=== PATIENT | female | born 1995 | race Caucasian/White ===

== ENCOUNTER → 2016-04-04 | Outpatient (CLI) | payer BC ==
[~2016-04-04] MED LIST: ASCA500 PO; NORE5TAB5 PO; [UNRECOGNIZED DRUG - OTHER] PV
[2016-04-04 14:39] LABS: BASO % 0.3 %; BASO ABS # 0.02 K/uL (0-0.2); COMPLETE YES; HEMATOCRIT 37.1 % (37-47); IG% 0.1 %; LYMPH % 38.5 %; MEAN CELL VOLUME 88.1 fL (80-100); MEAN CORPUSCULAR HEMOGLOBIN 30.6 pg (25-34); MEAN CORPUSCULAR HGB CONC 34.8 g/dl (32-36); MEAN PLATELET VOLUME 10.7 fL (7.4-10.4); MONO % 8.3 %; NEUT % 51.8 %; PLATELET COUNT 197 K/uL (130-400); RED BLOOD COUNT 4.21 M/uL (4.2-5.4); WHITE BLOOD COUNT 7.01 K/uL (4.8-10.8)
== END | disposition home or self-care (01) ==
LOC: C.LAB1850 13:56
PROVIDERS: ATTEND Obstetrics & Gynecology
DX: O02.1 Missed abortion (principal)

== ENCOUNTER 2016-04-05 08:30 | Day surgery (SDC) | payer BC ==
[2016-04-03 16:18] VITALS: BMI 27.0
[~2016-04-05] VITALS: Ht 157.5 cm; Wt 68.2 kg
[~2016-04-05 08:30] MED LIST changes: -ASCA500 PO; +DEXAMETHASONE SOD INJ 4 MG/ML VIAL ONE; +DOXYCYCLINE HYCLATE 100 MG CAP PO SCH; +FENTANYL CITRATE INJ 50 MCG/1 ML 2 ML VIAL ONE; +LACTATED RINGER'S 1000ML 1,000 ML IV SCH; +LACTATED RINGER'S 1000ML 500 ML IV ONE; +LIDOCAINE HCL 2% 2 ML VIAL (20MG/ML) ONE; +METHYLERGONOVINE MALEATE 0.2 MG TAB PO SCH; +METHYLERGONOVINE MALEATE 0.2 MG/ML AMP IM SCH; +MIDAZOLAM HCL 1 MG/ML 2ML VIAL ONE; -NORE5TAB5 PO; +ONDANSETRON INJ 2 MG/ML 2 ML VIAL ONE; +PROPOFOL IV EMULSION 10 MG/ML 20 ML VIAL IV ONE; -[UNRECOGNIZED DRUG - OTHER] PV
[2016-04-05 08:45] VITALS: BP 108/72; PULSE 90; TEMP 36.8; O2SAT 99; Ht 157.5 cm; Wt 68.2 kg
[2016-04-05] MEDS ORDERED: ATROPINE SULFATE 0.1 MG/ML 5ML SYR IV PRN (09:15)
[2016-04-05] MEDS ORDERED: ONDANSETRON INJ 2 MG/ML 2 ML VIAL IV PRN ×2 (09:15→11:00)
[2016-04-05] MEDS ORDERED: EpHEDrine SULFATE INJ 50 MG/ML AMP IV PRN (09:15)
[2016-04-05] MEDS ORDERED: PROMETHAZINE HCL INJ 6.25 MG in SODIUM CHLORIDE 0.9% 50ML 50 ML IV PRN (09:15)
[2016-04-05] MEDS ORDERED: FENTANYL CITRATE INJ 50 MCG/1 ML 2 ML VIAL IV PRN (09:15)
[2016-04-05] MEDS ORDERED: NURSING VERBAL MED ORDER ONE (10:00)
[2016-04-05] MEDS ORDERED: SCOPOLAMINE 1.5 MG TDSY TD ONE (10:02)
--- NOTE | 2016-04-05 10:03 | History & Physical Bridge Note ---
H&P Re-Evaluation Bridge Note: I have examined the patient, reviewed the History & Physical and in the interval since the performance of the History & Physical I have noted the following changes of clinical significance: No changes noted
[2016-04-05] MEDS ORDERED: METHYLERGONOVINE MALEATE 0.2 MG/ML AMP ONE (10:24)
[2016-04-05] MEDS ORDERED: ONDANSETRON INJ 2 MG/ML 2 ML VIAL ONE (10:47)
[2016-04-05] MEDS ORDERED: SODIUM CHLORIDE 0.9% 1000ML 1,000 ML IV SCH (10:48)
--- NOTE | 2016-04-05 10:50 | [facility] Post Operative Brief Note ---
Immediate Operative Summary Operative Date Apr 05, 2016. Pre-Operative Diagnosis Missed Post-Operative Diagnosis Missed Procedure(s) Performed Cervical Dilation, evacuation and curettage Surgeon Dr. Katalina Green Photoengraving Supervisor Surgeon(s) none Estimated Blood Loss 50 ml Findings uterus sounds to 9cm preop, small mobile postop. moderate POCs Fluids (cc crystalloids) 800 Specimens A. Products of Conception Drains none Anesthesia general LMA Complication(s) None Disposition Recovery Room / PACU
[2016-04-05] MEDS ORDERED: OXYCODONE/ACETAMINOPHEN 5-325 TAB PO PRN ×2 (11:00)
[2016-04-05] MEDS ORDERED: KETOROLAC TROMETHAMINE 30 MG/ML VIAL IV. PRN (11:00)
--- NOTE | 2016-04-05 11:28 | Medical Student: [facility] ---
Immediate Operative Summary Operative Date Apr 05, 2016. Pre-Operative Diagnosis Missed Post-Operative Diagnosis Missed Procedure(s) Performed Cervical dilation, curettage and evacuation Surgeon Dr. Katalina Green Vibrating Screen Operator Surgeon(s) None Estimated Blood Loss 50 mL Findings External cervical os to uterine fundus 9 cm pre-op Uterus small and mobile post-op Products of conception Fluids (cc crystalloids) 800 mL Specimens Products of conception Drains None Anesthesia LMA Complication(s) None Disposition Recovery Room / PACU
--- NOTE | 2016-04-05 11:28 | OPERATIVE REPORT ---
DATE OF OPERATION: 04/05/2016 PREOPERATIVE DIAGNOSES: Missed . POSTOPERATIVE DIAGNOSIS: Same. PROCEDURE: Dilatation and evacuation and curettage. SURGEON: Dr. Katalina Green. ENTERTAINMENT AGENT: None. IV FLUIDS: 800 mL. ANESTHESIA: General with LMA. ESTIMATED BLOOD LOSS: 50 mL. FINDINGS: Uterus sounds to 9 cm preprocedure. Small mobile, post-procedure. moderate products of conception. INDICATIONS: This 21-year-old 1, para 0 with 8 week 6-day missed who desired surgical management. She is aware of her other treatment options including expectant management and medical treatment and desired surgical management. OPERATION AND FINDINGS: PROCEDURE: The patient was taken to the operating room and identified. After adequate general anesthesia was obtained, she was placed in the dorsal lithotomy position and prepped and draped in the usual sterile fashion. Her bladder was drained for clear yellow urine. A weighted speculum and anterior retractor were placed to visualize the cervix which was grasped on its anterior lip with an Allis clamp. The cervix was sequentially dilated using Hegar dilators to 23. An 8 mm suction curette was gently placed through the cervical os into the uterine cavity and the uterus was cleared of its contents in multiple passes. The uterus was then curettaged to a gritty consistency and additional passes with the suction curette took place to clear the uterus of its remaining blood and tissue. IM Methergine 0.2 mg was administered per my order by anesthesia. All the vaginal instruments were removed. The patient was returned to supine position. She was transferred to the recovery room in stable condition. All sponge, lap and needle counts were correct x2. I attest to the content of the Intraoperative Record and any orders documented therein. Any exceptions are noted below. MTDD
[2016-04-05 11:30] VITALS: BP 116/68; PULSE 63; TEMP 36.9; O2SAT 100
[2016-04-05 12:00] VITALS: BP 117/77; PULSE 74; TEMP 36.8; O2SAT 99
[2016-04-05] MEDS ORDERED: IBUPROFEN 600 MG TAB ONE (12:09)
[2016-04-05 12:30] VITALS: BP 125/65; PULSE 70; TEMP 36.6; O2SAT 100
--- NOTE | 2016-04-05 13:03 | Discharge Instructions ---
Discharge Instructions Admission Reason for Admission: Missed Discharge Discharge Diagnosis / Problem: after surgery Discharge Goals Goal(s): Routine recovery after surgery Activity Recommendations Activity Limitations: as noted below . Instructions / Follow-Up Instructions / Follow-Up ACTIVITY RECOMMENDATIONS: * Avoid tampons, douching, hot tubs, pools, and intercourse until bleeding has stopped. * May shower as usual. * No strenuous activity for 24-48 hours. After 24-48 hours, you may do anything you feel like doing (driving and sports are okay). SPECIAL CARE INSTRUCTIONS: Special Diet: * Mild nausea may occur in the immediate post-operative period. * Take clear liquids such as tea, cola or bouillon until all nausea has subsided; you may then resume your normal diet. Take the methergine tablets given to you at the hospital every 6hrs by mouth for 3 doses. Take the first dose around 4pm today. Special Care: * Light bleeding and vaginal spotting can last from a few days to 3-4 weeks. Call your doctor if bleeding becomes heavier than the heaviest part of your period. * Check your temperature twice a day for one week. If it goes above 100.4 degrees Fahrenheit (38.0 Celsius), notify your doctor. * Call your doctor's office for an appointment for 2 weeks after your surgery. FOLLOW-UP VISIT: Call your doctor's office for an appointment for 2 weeks after your surgery. Current Hospital Diet Patient's current hospital diet: Discharge Diet Recommended Diet: Regular Diet Procedures Procedures Performed: Cervical Dilation, evacuation and curettage Pending Studies Studies pending at discharge: yes List of pending studies: pathology Medical Emergencies . Who to Call and When: Medical Emergencies: If at any time you feel your situation is an emergency, please call 911 immediately. . Non-Emergent Contact Non-Emergency issues call your: Powder Expert Call Non-Emergent contact if: you have a fever, you have any medication questions . . "Provider Documentation" section prepared by Katalina Green. VTE Core Measure Inpt VTE Proph given/why not?: Treatment not indicated
--- NOTE | 2016-04-05 14:31 | Anesthesiology Progress Note ---
Anesthesia Post Op Note Date & Time Apr 05, 2016 at 14:31 Vital Signs Pain Intensity: 1 Vital Signs Past 12 Hours Date Time Temp Pulse Resp B/P Pulse Ox O2 Delivery O2 Flow Rate FiO2 04/05/16 12:30 36.6 70 20 125/65 100 Room Air 04/05/16 12:00 36.8 74 20 117/77 99 Room Air 04/05/16 11:30 36.9 63 20 116/68 100 Room Air 04/05/16 11:25 37 63 16 116/73 100 Room Air 04/05/16 11:15 63 16 115/71 100 Room Air 04/05/16 11:05 82 16 122/74 100 Mask 10 04/05/16 10:55 36.8 88 16 118/78 100 Mask 10 04/05/16 10:46 36.8 115 24 131/95 99 Mask 10 04/05/16 08:45 36.8 90 18 108/72 99 Room Air Notes Mental Status: alert / awake / arousable, participated in evaluation Pt Amnestic to Procedure: Yes Nausea / Vomiting: adequately controlled Pain: adequately controlled Airway Patency, RR, SpO2: stable & adequate BP & HR: stable & adequate Hydration State: stable & adequate Anesthetic Complications: no major complications apparent
[2016-04-05] MEDS ORDERED: METHYLERGONOVINE MALEATE 0.2 MG TAB PO SCH (16:00)
[2016-04-05] MEDS ORDERED: IBUPROFEN 600 MG TAB PO PRN (18:00)
== END 2016-04-05 13:20 | disposition home or self-care (01) ==
LOC: C.ACU 08:30
PROVIDERS: ATTEND Obstetrics & Gynecology
DX: O02.1 Missed abortion (principal); Z88.0 Allergy status to penicillin; Z88.1 Allergy status to other antibiotic agents

== ENCOUNTER → 2016-05-22 | Outpatient (CLI) | payer BC ==
[~2016-05-22] MED LIST changes: +ASCA500 PO; -DEXAMETHASONE SOD INJ 4 MG/ML VIAL ONE; -DOXYCYCLINE HYCLATE 100 MG CAP PO SCH; -FENTANYL CITRATE INJ 50 MCG/1 ML 2 ML VIAL ONE; -LACTATED RINGER'S 1000ML 1,000 ML IV SCH; -LACTATED RINGER'S 1000ML 500 ML IV ONE; -LIDOCAINE HCL 2% 2 ML VIAL (20MG/ML) ONE; -METHYLERGONOVINE MALEATE 0.2 MG TAB PO SCH; -METHYLERGONOVINE MALEATE 0.2 MG/ML AMP IM SCH; -MIDAZOLAM HCL 1 MG/ML 2ML VIAL ONE; +NORE5TAB5 PO; -ONDANSETRON INJ 2 MG/ML 2 ML VIAL ONE; -PROPOFOL IV EMULSION 10 MG/ML 20 ML VIAL IV ONE; +[UNRECOGNIZED DRUG - OTHER] PV
[2016-05-22 17:19] LABS: URINE APPEARANCE CLOUDY (CLEAR); URINE BILIRUBIN NEG (NEG); URINE COLOR YELLOW; URINE NITRITE NEG (NEG); URINE SPECIFIC GRAVITY 1.007 (1.000-1.030); UROBILINOGEN NEG (NEG)
[2016-05-22 17:20] LABS: MANUAL MICROSCOPIC REQUIRED? NO; REVIEW REQ? YES
== END | disposition home or self-care (01) ==
LOC: C.LAB1850 16:08
PROVIDERS: ATTEND Physician Assistant
DX: R31.9 Hematuria, unspecified (principal)

== ENCOUNTER → 2016-05-24 | Outpatient (CLI) | payer BC ==
[2016-05-24 16:49] LABS: BASO % 0.1 %; BASO ABS # 0.01 K/uL (0-0.2); COMPLETE YES; EOS % 1.1 %; HEMATOCRIT 35.8 % (37-47); IG% 0.1 %; LYMPH % 39.7 %; LYMPH ABS # 2.83 K/uL (1.2-3.4); MEAN CELL VOLUME 88.8 fL (80-100); MEAN CORPUSCULAR HEMOGLOBIN 30.3 pg (25-34); MEAN CORPUSCULAR HGB CONC 34.1 g/dl (32-36); MEAN PLATELET VOLUME 10.1 fL (7.4-10.4); MONO % 11.2 %; NEUT % 47.8 %; PLATELET COUNT 297 K/uL (130-400); RED BLOOD COUNT 4.03 M/uL (4.2-5.4); WHITE BLOOD COUNT 7.12 K/uL (4.8-10.8)
[2016-05-24 17:36] LABS: PREG INTERNAL NEGATIVE QC NEG CLEAR BACKGROUND; PREG INTERNAL POSITIVE QC POS CONTROL LINE
[2016-05-25 23:53] LABS: RAPID PLASMA REAGIN NONREACTIVE (NONREACT)
[2016-05-27 03:06] LABS: CHLAMYDIA TRACH RNA*** NOT DETECTED (NOT DETECTED); GC (NEIS GONORRHOEAE)RNA** NOT DETECTED (NOT DETECTED)
== END | disposition home or self-care (01) ==
LOC: C.LAB1850 16:04
PROVIDERS: ATTEND Physician Assistant
DX: R10.2 Pelvic and perineal pain (principal); Z11.3 Encounter for screening for infections with a predominantly sexual mode of transmission

== ENCOUNTER 2016-05-25 15:35 | Emergency (ER) | payer BC ==
[~2016-05-25] VITALS: Ht 160 cm; Wt 66.9 kg
[2016-05-25 15:37] VITALS: TEMP 36.9
[2016-05-25] MEDS ORDERED: SODIUM CHLORIDE 0.9% 1000ML 1,000 ML IV STA (15:49)
[2016-05-25] MEDS ORDERED: ASCA500 PO (16:02)
[2016-05-25 16:03] VITALS: Ht 160 cm; Wt 66.9 kg
[2016-05-25 16:04] VITALS: O2SAT 97
[2016-05-25 16:09] LABS: BASO % 0.4 %; BASO ABS # 0.02 K/uL (0-0.2); COMPLETE YES; EOS % 1.1 %; HEMATOCRIT 38.1 % (37-47); IG% 0.2 %; LYMPH % 44.9 %; MEAN CELL VOLUME 87.2 fL (80-100); MEAN CORPUSCULAR HEMOGLOBIN 29.7 pg (25-34); MEAN CORPUSCULAR HGB CONC 34.1 g/dl (32-36); MEAN PLATELET VOLUME 9.5 fL (7.4-10.4); MONO % 12.2 %; NEUT % 41.2 %; PLATELET COUNT 285 K/uL (130-400); RED BLOOD COUNT 4.37 M/uL (4.2-5.4); WHITE BLOOD COUNT 5.57 K/uL (4.8-10.8)
[2016-05-25 16:25] LABS: PARTIAL THROMBOPLASTIN RATIO 1.1; PROTHROMBIN TIME (PATIENT) 10.7 SECONDS (9.0-12.0)
[2016-05-25 16:29] LABS: BUN/CREATININE RATIO 8.2 (10-20); CALCIUM 8.8 mg/dl (8.5-10.1); CREATININE 0.72 mg/dl (0.60-1.20); POTASSIUM 3.5 mmol/L (3.5-5.1)
[2016-05-25 16:31] LABS: ALB/GLOB RATIO 1.2 (0.9-2)
--- NOTE | 2016-05-25 17:15 | DIAGNOSTIC IMAGING REPORT ---
EXAMINATION: PELVIC ULTRASOUND (transabdominal and endovaginal scanning) CLINICAL HISTORY: Vaginal bleeding COMPARISON STUDY: None FINDINGS: The uterus measured 7.9 x 4.0 x 5.8 cm. The endometrial stripe measured 12 mm. The right ovary measured 39 x 23 x 24 mm. The left ovary measured 43 x 27 x 29 mm. There are multiple bilateral ovarian follicles. There is no ultrasonographic evidence of ovarian torsion. It should be noted that ovarian torsion can be present with normal Doppler ultrasonographic findings. There is minimal free fluid likely physiologic. IMPRESSION: 1. 12 mm endometrial stripe. No myometrial masses identified 2. Multiple bilateral ovarian follicles. No evidence ultrasound of torsion. Electronically signed by: Aubrey Varner M.D. 05/25/2016 5:13 PM Dictated Date/Time: 05/25/2016 5:10 PM
[2016-05-25] MEDS ORDERED: NORETHINDRONE ACETATE 5 MG TAB PO STA (17:39)
[2016-05-25 17:54] LABS: URINE APPEARANCE CLEAR (CLEAR); URINE BILIRUBIN NEG (NEG); URINE COLOR YELLOW; URINE EPITHELIAL CELL AUTO 0-5 /lpf (0-5); URINE NITRITE NEG (NEG); URINE SPECIFIC GRAVITY 1.004 (1.000-1.030); UROBILINOGEN NEG (NEG)
[2016-05-25 17:56] LABS: MANUAL MICROSCOPIC REQUIRED? NO; REVIEW REQ? NO
[2016-05-25 17:57] VITALS: BP 109/60; PULSE 67; O2SAT 98
[2016-05-25] MEDS ORDERED: NORE5TAB5 PO (18:01)
--- NOTE | 2016-05-25 20:16 | EMERGENCY ROOM VISIT NOTE ---
History Report prepared by Sindy: Emmett Hoffman Under the Supervision of: Dr. Coleman Palmer M.D. First contact with patient: 15:49 Chief Complaint: VAGINAL BLEEDING Stated Complaint: PELVIC PAIN, AND HEAVY BLEEDING History of Present Illness The patient is a 21 year old female who presents to the Emergency Room with complaints of persistent vaginal bleeding beginning 2 days ago. She had a miscarriage, and had a D&E on April 05, [address] Green. She was seen by [facility] yesterday and had a pelvic exam, but could not get scheduled for a US, and was referred to the ER. After the D&E she reports bleeding for a while, but was otherwise fine. The patient notes having her first period since the miscarriage about 2 weeks ago, and heavy bleeding began 2 days ago. She adds having abdominal pain which she describes as like her menstrual pain. She states using a tampon about every 2 hours. This was her first , and she reports the miscarriage was not caused by anything specific. Pt denies LOC, headache, fevers, chills, diaphoresis, visual changes, neck pain , chest pain, breathing difficulties, nausea, vomiting, back pain, melena, hematochezia, urinary symptoms, numbness, weakness, lymphadenopathy, rash, or other complaints. Source of History: patient Onset: 2 days ago Position: other (vagina) Symptom Intensity: tampon every 2 hours Quality: other (vaginal bleeding) Timing: other (persistent) Associated Symptoms: + abdominal pain Review of Systems See HPI for pertinent positives and negatives. A total of ten systems were reviewed and were otherwise negative. Past Medical & Surgical Medical Problems: (1) History of miscarriage Family History No pertinent family history stated. Social History Smoking Status: Never Smoker Current/Historical Medications Scheduled Ascorbic Acid (Vitamin C), 500 MG PO DAILY Norethindrone (Aygestin), 5 MG PO UD Allergies Coded Allergies: Amoxicillin (Verified Allergy, Unknown, FAMILY HX - MOM SEVERE ALLERGY, SISTER-HIVES, 05/25/16) Penicillins (Verified Allergy, Unknown, FAMILY HX - MOM SEVERE ALLERGY, SISTER-HIVES, 05/25/16) Physical Exam Vital Signs Date Time Temp Pulse Resp B/P Pulse Ox O2 Delivery O2 Flow Rate FiO2 05/25/16 17:57 67 18 109/60 98 Room Air 05/25/16 17:35 63 05/25/16 16:04 97 Room Air 05/25/16 15:37 36.9 71 18 126/84 97 Room Air Physical Exam GENERAL: Awake, alert, well-appearing, in no distress HENT: Normocephalic, atraumatic. Oropharynx unremarkable. EYES: Normal conjunctiva. Sclera non-icteric. NECK: Supple. No nuchal rigidity. FROM. No JVD. RESPIRATORY: Clear to auscultation. CARDIAC: Regular rate, normal rhythm. Extremities warm and well perfused. Pulses equal. ABDOMEN: Soft, non-distended. Mild lower abdominal tenderness to palpation. No rebound or guarding. No masses. RECTAL: Deferred. MUSCULOSKELETAL: Chest examination reveals no tenderness. The back is symmetrical on inspection without obvious abnormality. There is no CVA tenderness to palpation. No joint edema. LOWER EXTREMITIES: Calves are equal size bilaterally and non-tender. No edema. No discoloration. NEURO: Normal sensorium. No sensory or motor deficits noted. SKIN: No rash or jaundice noted. Medical Decision & Procedures ER Provider Diagnostic Interpretation: Radiology results as stated below per my review and radiologist interpretation EXAMINATION: PELVIC ULTRASOUND (transabdominal and endovaginal scanning) CLINICAL HISTORY: Vaginal bleeding COMPARISON STUDY: None FINDINGS: The uterus measured 7.9 x 4.0 x 5.8 cm. The endometrial stripe measured 12 mm. The right ovary measured 39 x 23 x 24 mm. The left ovary measured 43 x 27 x 29 mm. There are multiple bilateral ovarian follicles. There is no ultrasonographic evidence of ovarian torsion. It should be noted that ovarian torsion can be present with normal Doppler ultrasonographic findings. There is minimal free fluid likely physiologic. IMPRESSION: 1. 12 mm endometrial stripe. No myometrial masses identified 2. Multiple bilateral ovarian follicles. No evidence ultrasound of torsion. Electronically signed by: Aubrey Varner M.D. 05/25/2016 5:13 PM Dictated Date/Time: 05/25/2016 5:10 PM Laboratory Results 05/25/16 15:57 Red Blood Count 4.37, Mean Corpuscular Volume 87.2, Mean Corpuscular Hemoglobin 29.7, Mean Corpuscular Hemoglobin Concent 34.1, Mean Platelet Volume 9.5, Neutrophils (%) (Auto) 41.2, Lymphocytes (%) (Auto) 44.9, Monocytes (%) (Auto) 12.2, Eosinophils (%) (Auto) 1.1, Basophils (%) (Auto) 0.4, Neutrophils # (Auto ) 2.30, Lymphocytes # (Auto) 2.50, Monocytes # (Auto) 0.68, Eosinophils # (Auto ) 0.06, Basophils # (Auto) 0.02 05/25/16 15:57 Test 05/25/16 15:57 05/25/16 17:28 White Blood Count 5.57 K/uL (4.8-10.8) Red Blood Count 4.37 M/uL (4.2-5.4) Hemoglobin 13.0 g/dL (12.0-16.0) Hematocrit 38.1 % (37-47) Mean Corpuscular Volume 87.2 fL (80-100) Mean Corpuscular Hemoglobin 29.7 pg (25-34) Mean Corpuscular Hemoglobin Concent 34.1 g/dl (32-36) Platelet Count 285 K/uL (130-400) Mean Platelet Volume 9.5 fL (7.4-10.4) Neutrophils (%) (Auto) 41.2 % Lymphocytes (%) (Auto) 44.9 % Monocytes (%) (Auto) 12.2 % Eosinophils (%) (Auto) 1.1 % Basophils (%) (Auto) 0.4 % Neutrophils # (Auto) 2.30 K/uL (1.4-6.5) Lymphocytes # (Auto) 2.50 K/uL (1.2-3.4) Monocytes # (Auto) 0.68 K/uL (0.11-0.59) Eosinophils # (Auto) 0.06 K/uL (0-0.5) Basophils # (Auto) 0.02 K/uL (0-0.2) RDW Standard Deviation 40.7 fL (36.4-46.3) RDW Coefficient of Variation 12.7 % (11.5-14.5) Immature Granulocyte % (Auto) 0.2 % Immature Granulocyte # (Auto) 0.01 K/uL (0.00-0.02) Prothrombin Time 10.7 SECONDS (9.0-12.0) Prothromb Time International Ratio 1.0 (0.9-1.1) Activated Partial Thromboplast Time 29.4 SECONDS (21.0-31.0) Partial Thromboplastin Ratio 1.1 Anion Gap 7.0 mmol/L (3-11) Est Creatinine Clear Calc Drug Dose 112.6 ml/min Estimated GFR () 137.8 Estimated GFR (Non- 118.9 BUN/Creatinine Ratio 8.2 (10-20) Calcium Level 8.8 mg/dl (8.5-10.1) Total Bilirubin 0.3 mg/dl (0.2-1) Aspartate Amino Transf (AST/SGOT) 19 U/L (15-37) Alanine Aminotransferase (ALT/SGPT) 21 U/L (12-78) Alkaline Phosphatase 52 U/L (45-117) Total Protein 7.6 gm/dl (6.4-8.2) Albumin 4.2 gm/dl (3.4-5.0) Globulin 3.4 gm/dl (2.5-4.0) Albumin/Globulin Ratio 1.2 (0.9-2) Human Chorionic Gonadotropin, Quant 2 mIU/mL Urine Color YELLOW Urine Appearance CLEAR (CLEAR) Urine pH 7.0 (4.5-7.5) Urine Specific Zalma 1.004 (1.000-1.030) Urine Protein NEG (NEG) Urine Glucose (UA) NEG (NEG) Urine Ketones NEG (NEG) Urine Occult Blood TRACE (NEG) Urine Nitrite NEG (NEG) Urine Bilirubin NEG (NEG) Urine Urobilinogen NEG (NEG) Urine Leukocyte Esterase NEG (NEG) Urine WBC (Auto) 0 /hpf (0-5) Urine RBC (Auto) 0-4 /hpf (0-4) Urine Hyaline Casts (Auto) 0 /lpf (0-5) Urine Epithelial Cells (Auto) 0-5 /lpf (0-5) Urine Bacteria (Auto) NEG (NEG) Urine Test NEG (NEG) Laboratory results reviewed by me Medications Administered Medications (Trade) Dose Ordered Sig/Vicki Route Start Time Stop Time Status Last Admin Dose Admin Sodium Chloride (Nss 1000ml) 1,000 ml @ 999 mls/hr Q1H1M STAT IV 05/25/16 15:49 05/25/16 16:49 DC 05/25/16 16:06 999 MLS/HR Norethindrone Acetate (Aygestin Tab) 5 mg NOW STAT PO 05/25/16 17:39 05/25/16 17:52 DC 05/25/16 18:12 5 MG ED Course 1549: Ordered NSS 1,000 ml @ 999 mls/hr IV. 1601: The patient was evaluated in room A12B. A complete history and physical exam was performed. 1735: I discussed the patient's case with Dr. Green who recommended starting the patient on a progestin taper and then follow up. 1738: I updated the patient and she agrees to the progestin taper. 1739: Ordered Norethindrone Acetate 5 mg PO. 1800: I reevaluated the patient. Discussed results and discharge instructions: She verbalized understanding and agreement. The patient is ready for discharge. Medical Decision Triage Nursing notes reviewed and agree them. The patient's history was concerning for vaginal bleeding and abdominal pain. Differential diagnosis: Etiologies such as dysfunctional uterine bleeding,ectopic , bleeding dyscrasia, trauma, infection, as well as others were entertained. Physical examination: As above. Mild tenderness but no peritoneal findings. ER treatment provided: Normal saline hydration On reassessment the patient felt better. Diagnostic interpretation by me: The labs revealed the patient to the Rh positive. CBC, coagulation studies, and chemistries were unremarkable. Quantitative hCG was 2 Imaging studies: Ultrasound as above Consultation: A consultation was placed with the nutrition services worker physician, Dr. Green. The case was discussed and diagnostics were reviewed. She recommended offering a norethindrone taper to the patient. The patient accepted. I gave my usual and customary discussion regarding this issue. The patient was given the first 5 mg in the emergency department. By the evaluation outlined above emergent etiologies such as bleeding dyscrasia , ectopic , trauma, as well as others were deemed relatively unlikely. The patient was informed about the findings as listed above. All questions were answered and she was pleased with the treatment. Return instructions were outlined and the patient was discharged in stable condition. Outpatient prescription management: Norethindrone taper:4 pills daily for 4 days, then 3 pills a day for 3 days, then 2 pills a day for 2 days, then one pill a day until finished. Referral: The patient was referred to [facility] for follow-up in 2 to 3 days for a recheck of her current condition. The chart was completed utilizing [employer] voice recognition software. Grammatical errors, random word insertions, pronoun errors, and incomplete sentences are an occasional consequence of this system due to software limitations, ambient noise, and hardware issues. Any formal questions or concerns about the content, text, or information contained within the body of this dictation should be directly addressed to the physician for clarification. Consults Time Called: 1722 Consulting Physician: Dr. Green, [facility] Returned Call: 1730 I discussed the patient's case with Dr. Green who recommended starting the patient on a progestin taper and then follow up. Impression Primary Impression: Dysfunctional uterine bleeding Scribe Attestation The scribe's documentation has been prepared under my direction and personally reviewed by me in its entirety. I confirm that the note above accurately reflects all work, treatment, procedures, and medical decision making performed by me. Departure Information Dispostion Home / Self-Care Prescriptions Norethindrone (Aygestin) 5 Mg Tab 5 MG PO UD, #39 TAB 4 pills daily for 4 days, then 3 pills a day for 3 days, then 2 pills a day for 2 days, then one pill a day until finished. Prov: Coleman Palmer MD 05/25/16 Referrals No Doctor, Assigned (PCP) Patient Instructions My [facility] [employer] Additional Instructions Norethindrone: 4 pills daily for 4 days, then 3 pills a day for 3 days, then 2 pills a day for 2 days, then one pill a day until finished. Review the package insert for all your medications. This is necessary as important health information is provided for your benefit and current care. Abstain from intercourse or use condoms to avoid while on the norethindrone. Return to the emergency department for passing out, abdominal pain, bleeding more than 3 pads an hour for 3 consecutive hours, or as needed. No tampon use, intercourse, physical exertion, or strenuous activity. Rest and drink plenty of fluids. Follow-up with [facility] next week.
== END 2016-05-25 18:21 | disposition home or self-care (01) ==
LOC: C.EDB 15:36 → C.EDA 18:21
DX: N93.8 Other specified abnormal uterine and vaginal bleeding (principal)

== ENCOUNTER 2016-05-31 20:20 | Emergency (ER) | payer BC ==
[~2016-05-31] VITALS: Ht 160 cm; Wt 67.0 kg
[~2016-05-31 20:20] MED LIST changes: -[UNRECOGNIZED DRUG - OTHER] PV
[2016-05-31 20:26] VITALS: TEMP 37.1; Ht 160 cm; Wt 67.0 kg
[2016-05-31] MEDS ORDERED: [UNRECOGNIZED DRUG - OTHER] PV (21:02)
--- NOTE | 2016-05-31 21:31 | EMERGENCY ROOM VISIT NOTE ---
History Report prepared by Sindy: Chaparrita Patiño Under the Supervision of: Dr. Emmett Varghese M.D. 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 The patient states that she had a D&E 2 months ago, and since she has had irregular bleeding and menstrual periods. She states for 3 weeks after the D&E she had bleeding and then last week she had another menstrual period with very heavy bleeding and cramping which she was seen in the ED for. She states that today she did not have any bleeding but passed an irregular clot causing her to come into the ED. The patient denies any abdominal pain, back pain, lightheadedness, dizziness, She states she was here last week and heavy bleeding, urinary burning, trauma or injury. The patient states that she was taking an medication over the last week which she was suppose to taper but she states she messed up while taking it the last few days and today was the first day which she did not take it at all. The patient also states that she is currently on medication for a bacterial infection by her OBGYN. The patient denies any chance of and states she last had intercourse about 1 week ago. Source of History: patient Onset: 1 hour PRESS ASSISTANT Position: other (vaginal) Quality: other (abnormal) Associated Symptoms: No abdominal pain, No back pain Note: Patient denies vaginal bleeding, lightheadedness, dizziness, urinary burning, trauma or injury. Review of Systems See HPI for pertinent positives & negatives. A total of 10 systems reviewed and were otherwise negative. Past Medical & Surgical Medical Problems: (1) History of miscarriage Old medical records were reviewed. Nurse's notes were reviewed and I agree with. Family History Patient reports no known family medical history. Social History Smoking Status: Never Smoker Marital Status: single Housing Status: lives with roommate Occupation Status: student Current/Historical Medications Scheduled Ascorbic Acid (Vitamin C), 500 MG PO DAILY Metronidazole HCl (Metronidazole Vaginal), 1 APPLN PV HS Norethindrone (Aygestin), 5 MG PO UD Allergies Coded Allergies: Amoxicillin (Verified Allergy, Unknown, FAMILY HX - MOM SEVERE ALLERGY, SISTER-HIVES, 05/25/16) Penicillins (Verified Allergy, Unknown, FAMILY HX - MOM SEVERE ALLERGY, SISTER-HIVES, 05/25/16) Physical Exam Vital Signs Date Time Temp Pulse Resp B/P Pulse Ox O2 Delivery O2 Flow Rate FiO2 05/31/16 22:34 64 16 98/64 100 05/31/16 20:26 37.1 96 18 130/81 95 Room Air Physical Exam General: Non ill appearing young female in no acute distress HEENT: Normal cephalic atraumatic. Pupils are equal round and reactive to light. Extraocular movements are intact. Oropharynx is pink with moist mucous membranes. No swelling of the mouth lips or tongue. Neck: Supple with a midline trachea. No meningeal signs or stiffness, no JVD or bruits. No Stridor. Chest: Clear to auscultation bilaterally. No wheezes or rhonchi. No increased work of breathing. Heart: regular rate and rhythm. Abdomen: Soft nontender, nondistended without rebound guarding or rigidity. Pelvic: Deferred. patient has tissue sample in specimen jar which looked like membranes. Extremities: No cyanosis clubbing or edema. No calf tenderness or assymetry Spine/Back. Non tender to palpation. No CVA tenderness Skin: Good turgor without rashes. Neurologic exam: Cranial nerves two through 12 are intact. Motor and sensation are intact and symmetrical throughout. Medical Decision & Procedures Laboratory Results 05/31/16 21:30 Red Blood Count 4.05, Mean Corpuscular Volume 86.9, Mean Corpuscular Hemoglobin 30.1, Mean Corpuscular Hemoglobin Concent 34.7, Mean Platelet Volume 10.2, Neutrophils (%) (Auto) 38.5, Lymphocytes (%) (Auto) 51.6, Monocytes (%) (Auto) 7.7, Eosinophils (%) (Auto) 1.7, Basophils (%) (Auto) 0.3, Neutrophils # (Auto) 2.32, Lymphocytes # (Auto) 3.10, Monocytes # (Auto) 0.46, Eosinophils # (Auto) 0.10, Basophils # (Auto) 0.02 05/31/16 21:30 Test 05/31/16 21:30 White Blood Count 6.01 K/uL (4.8-10.8) Red Blood Count 4.05 M/uL (4.2-5.4) Hemoglobin 12.2 g/dL (12.0-16.0) Hematocrit 35.2 % (37-47) Mean Corpuscular Volume 86.9 fL (80-100) Mean Corpuscular Hemoglobin 30.1 pg (25-34) Mean Corpuscular Hemoglobin Concent 34.7 g/dl (32-36) Platelet Count 258 K/uL (130-400) Mean Platelet Volume 10.2 fL (7.4-10.4) Neutrophils (%) (Auto) 38.5 % Lymphocytes (%) (Auto) 51.6 % Monocytes (%) (Auto) 7.7 % Eosinophils (%) (Auto) 1.7 % Basophils (%) (Auto) 0.3 % Neutrophils # (Auto) 2.32 K/uL (1.4-6.5) Lymphocytes # (Auto) 3.10 K/uL (1.2-3.4) Monocytes # (Auto) 0.46 K/uL (0.11-0.59) Eosinophils # (Auto) 0.10 K/uL (0-0.5) Basophils # (Auto) 0.02 K/uL (0-0.2) RDW Standard Deviation 42.6 fL (36.4-46.3) RDW Coefficient of Variation 13.2 % (11.5-14.5) Immature Granulocyte % (Auto) 0.2 % Immature Granulocyte # (Auto) 0.01 K/uL (0.00-0.02) Echinocytes 1+ Anion Gap 6.0 mmol/L (3-11) Est Creatinine Clear Calc Drug Dose 108.2 ml/min Estimated GFR () 131.1 Estimated GFR (Non- 113.1 BUN/Creatinine Ratio 9.5 (10-20) Calcium Level 9.1 mg/dl (8.5-10.1) Human Chorionic Gonadotropin, Qual NEG (NEG) Laboratory studies as stated above per my review. ED Course 2107: Past medical records reviewed. The patient was evaluated in room B7, and a complete history and physical examination were performed. 2203: I revaluated the patient and she was resting comfortably with no bleeding. 2213: I discussed the case with Dr. Childs Obstetrics/Gynecology. He suggested because the patient has stopped taking her Aygestin to follow up with Dr. Green Obstetrics/Gynecology tomorrow. Medical Decision Differentials include, but are not limited to; vaginal bleeding, , ectopic . This patient comes in as described above. She was having vaginal bleeding and was seen here a few days ago and had a normal ultrasound. test was negative. She started on Aygestin taper as requested by the small arms repairer. The patient missed the last couple days and has had minimal bleeding until she passed a small amount of what looks like tissue today. She looks well and has no bleeding at present she's no abdominal pain. Blood work was obtained he was stable at 12.2. she's had no white count or fever to suggest infection. She's had no acute electrolyte or metabolic abnormalities. I double checked her test and it is negative. She feels good and like to go home. I did discuss the case with Dr. Childs who agrees with holding Aygestin for now. She's been off it for several days and has no bleeding she should follow with Dr. Green who is her small arms repairer and call the office tomorrow to make close follow-up. She was happy with plan and discharged to home. Consults Time Called: 2209 Consulting Physician: Dr. Childs Obstetrics/Gynecology Returned Call: [phone] I discussed the case with Dr. Childs Obstetrics/Gynecology. He suggested because the patient has stopped taking her Aygestin to follow up with Dr. Green Obstetrics/Gynecology tomorrow. Impression Primary Impression: Vaginal bleeding Scribe Attestation The scribe's documentation has been prepared under my direction and personally reviewed by me in its entirety. I confirm that the note above accurately reflects all work, treatment, procedures, and medical decision making performed by me. Departure Information Dispostion Home / Self-Care Referrals No Doctor, Assigned (PCP) Forms HOME CARE DOCUMENTATION FORM, IMPORTANT VISIT INFORMATION, WORK / SCHOOL INSTRUCTIONS Patient Instructions My [facility] Additional Instructions Rest. Drink plenty of fluids. Return if: Increasing pain or bleeding, worseningof symptoms, fever or chills, any new problems concerns Follow-up with Dr. Richard the office tomorrow to make an appointment either this week or early next week
[2016-05-31 21:52] LABS: HEMATOCRIT 35.2 % (37-47); MEAN CELL VOLUME 86.9 fL (80-100); MEAN CORPUSCULAR HEMOGLOBIN 30.1 pg (25-34); MEAN CORPUSCULAR HGB CONC 34.7 g/dl (32-36); MEAN PLATELET VOLUME 10.2 fL (7.4-10.4); PLATELET COUNT 258 K/uL (130-400); RED BLOOD COUNT 4.05 M/uL (4.2-5.4); WHITE BLOOD COUNT 6.01 K/uL (4.8-10.8)
[2016-05-31 22:02] LABS: BUN/CREATININE RATIO 9.5 (10-20); CREATININE 0.75 mg/dl (0.60-1.20); POTASSIUM 3.4 mmol/L (3.5-5.1)
[2016-05-31 22:08] LABS: PREG INTERNAL NEGATIVE QC NEG CLEAR BACKGROUND; PREG INTERNAL POSITIVE QC POS CONTROL LINE
[2016-05-31 22:34] VITALS: BP 98/64; PULSE 64; O2SAT 100
[2016-05-31 22:40] LABS: BASO % 0.3 %; BASO ABS # 0.02 K/uL (0-0.2); COMPLETE YES; ECHINOCYTES 1+; EOS % 1.7 %; IG% 0.2 %; LYMPH % 51.6 %; MONO % 7.7 %; NEUT % 38.5 %
[2016-05-31 23:19] LABS: CALCIUM 9.1 mg/dl (8.5-10.1)
== END 2016-05-31 22:41 | disposition home or self-care (01) ==
LOC: C.EDB 20:20
DX: N93.9 Abnormal uterine and vaginal bleeding, unspecified (principal)